=== PATIENT | male | born 1975 | race Caucasian/White ===

== ENCOUNTER 2016-08-29 21:49 | Emergency (ER) | payer MEDICAID, OTHER ==
[~2016-08-29] VITALS: Ht 185.4 cm; Wt 77.1 kg
--- NOTE | 2016-08-29 21:49 | NUR ---
PT ASUNCION C[place]AS[place], PREBOOK. TAKEN TO OF
[2016-08-29 21:50] VITALS: BP 120/69
--- NOTE | 2016-08-29 21:57 | NUR ---
41 Y/O M ASUNCION [place] FOR PRE-BOOK HEALTH CLEARANCE. PT DENIES ANY PAIN, NO S/S OF DISTRESS NOTED AT THE MOMENT.
--- NOTE | 2016-08-29 22:08 | NUR ---
Dr. Tran evaluating patient at bedside.
[2016-08-29 22:20] VITALS: BP 120/69
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
== END 2016-08-29 22:20 ==
LOC: MED 21:49
DX: Z02.89 Encounter for other administrative examinations (principal)

== ENCOUNTER 2020-11-12 11:15 | Emergency (ER) | payer MEDICAID, OTHER ==
[~2020-11-12] VITALS: Ht 182.9 cm; Wt 77.1 kg
[2020-11-12 11:18] VITALS: BP 132/76
--- NOTE | 2020-11-12 11:23 | NUR ---
Pt W/C assisted to ER bed 3.
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
[2020-11-12] MEDS ORDERED: ACETAMINOPHEN 325 MG TAB PO ONE (11:35)
--- NOTE | 2020-11-12 11:37 | NUR ---
X-Ray at bedside.
[2020-11-12] MEDS ORDERED: ACET-10509 PO (11:45)
--- NOTE | 2020-11-12 11:54 | NUR ---
Patient discharged with v/s stable. Written and verbal after care instructions given FOR KNEE SPRAIN and explained. Patient alert, oriented and verbalized understanding of instructions. Ambulatory with steady gait. All questions addressed prior to discharge. ID band removed. Patient advised to follow up with PMD. Rx of TYNENOL 500MG Q4-6H PRN PAIN AND INFLAMMATION given. Patient educated on indication of medication including possible reaction and side effects. Opportunity to ask questions provided and answered.
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
[2020-11-12 11:56] VITALS: BP 132/76
== END 2020-11-12 11:54 | disposition home or self-care (01) ==
LOC: MED 11:15
DX: S83.91XA Sprain of unspecified site of right knee, initial encounter (principal); Z79.899 Other long term (current) drug therapy; V89.9XXA Person injured in unspecified vehicle accident, initial encounter; Y93.89 Activity, other specified; Y92.89 Other specified places as the place of occurrence of the external cause; Y99.8 Other external cause status
CPT/HCPCS: 73562; 99283